=== PATIENT | male | born 1970 | race Two or more races ===

== ENCOUNTER 2019-10-29 06:44 | Day surgery (SDC) | payer OTHER | END 2019-10-29 11:10 | disposition home or self-care (01) | LOC: AMB-ENDOS 06:44 → ADM 13:00 → AMB-ENDOS 13:00 | DX: D13.1 Benign neoplasm of stomach (principal); D13.2 Benign neoplasm of duodenum; K20.8 Other esophagitis; R19.8 Other specified symptoms and signs involving the digestive system and abdomen; K29.70 Gastritis, unspecified, without bleeding; Z12.11 Encounter for screening for malignant neoplasm of colon ==

== ENCOUNTER 2023-08-27 07:36 | Outpatient (CLI) | payer OTHER | END 2023-08-27 07:41 | disposition home or self-care (01) | LOC: NUCLEAR 07:36 | PROVIDERS: ATTEND Internal Medicine | DX: I20.9 Angina pectoris, unspecified (principal) ==

== ENCOUNTER 2024-12-04 07:52 | Outpatient (CLI) | payer OTHER | END 2024-12-04 07:54 | disposition home or self-care (01) | LOC: NUCLEAR 07:52 | PROVIDERS: ATTEND Internal Medicine | DX: I82.409 Acute embolism and thrombosis of unspecified deep veins of unspecified lower extremity (principal) ==

== ENCOUNTER 2024-12-05 09:34 | Outpatient (CLI) | payer OTHER | END 2024-12-05 10:37 | disposition home or self-care (01) | LOC: NUCLEAR 09:34 | PROVIDERS: ATTEND Internal Medicine | DX: I73.9 Peripheral vascular disease, unspecified (principal) ==

== ENCOUNTER 2025-06-13 16:11 | Emergency (ER) | payer OTHER ==
[~2025-06-13] VITALS: Ht 170.2 cm; Wt 73.5 kg
[2025-06-13] MEDS ORDERED: CEFTRIAXONE SODIUM 1,000 MG VIAL ONE (18:52)
[2025-06-13] MEDS ORDERED: CEPHALEXIN500 MG PO (18:54)
[2025-06-13] MEDS ORDERED: CEFTRIAXONE SODIUM 1,000 MG VIAL IM ONE (19:00)
[2025-06-13] MEDS ORDERED: KETOROLAC TROMETHAMINE 60 MG VIAL IM ONE ×2 (19:03→19:15)
== END 2025-06-13 21:15 | disposition home or self-care (01) ==
LOC: ER 16:11
DX: L02.411 Cutaneous abscess of right axilla (principal); L02.31 Cutaneous abscess of buttock; I10 Essential (primary) hypertension